=== PATIENT | male | born 1970 ===

== ENCOUNTER 2017-02-28 21:11 | Emergency (ER) | payer OTHER ==
[2017-02-28 21:49] VITALS: BP 147/80
--- NOTE | 2017-02-28 21:58 | ED THROAT/DENTAL COMPLAINT ---
History of Present Illness General Chief Complaint: Sore Throat, Dental Pain Stated Complaint: THROAT PAIN Source: patient Exam Limitations: no limitations Vital Signs & Intake/Output Vital Signs & Intake/Output Vital Signs Date Time Temp Pulse Resp B/P Pulse O2 O2 Flow FiO2 Ox Delivery Rate 02/28 2149 98.7 88 16 147/80 98 Room Air Room Air ED Intake and Output 03/01 0000 02/28 1200 Intake Total 0 Output Total Balance 0 Intake, Oral 0 Allergies Coded Allergies: No Known Drug Allergies (NKDA 02/28/17) Reconcile Medications Methylprednisolone. (Medrol) 4 MG TAB.DS.PK 1 DP PO AD INFLAMMATION 6 on day 1 then reduce by one tablet daily until gone Triage Note: PT TO TRIAGE WITH SORE THROAT AND COUGH. PT DENIES FEVERS. STATES IT STARTED 2 WEEKS AGO Triage Nurses Notes Reviewed? yes Onset: Gradual Duration: getting worse Timing: recent history Injury Environment: home Severity: severe Severity Numbers: 7 HPI: Patient is a 46-year-old male who presents emergency with a two-week history of sore throat or today his symptoms significantly worsened that made patient presents to the emergency room. Patient denies any similar sick contacts. Denies any fever or chills patient has a chronic cough he is an every day smoker. Patient hasn't taken any medications for symptoms. Denies any ear pain shortness of breath. Patient states that eating and drinking make symptoms worse however he can tolerate (BERNABE KNIGHT) Past History Travel History Traveled to [place] past 21 day No Medical History Any Pertinent Medical History? none Surgical History Surgical History: non-contributory Psychosocial History What is your primary language Kinyarwanda Tobacco Use: Current Daily Use Daily Tobacco Use Amount/Type: => 5 Cigarettes daily Family History Hx Contributory? No (BERNABE KNIGHT) Review of Systems Review of Systems Constitutional: Denies: chills, fever. EENTM: Reports: throat pain. Respiratory: Reports: see HPI, cough. Cardiovascular: Reports: no symptoms. GI: Reports: no symptoms. Genitourinary: Reports: no symptoms. Musculoskeletal: Reports: no symptoms. Skin: Reports: no symptoms. Neurological/Psychological: Reports: no symptoms. Hematologic/Endocrine: Reports: no symptoms. Immunologic/Allergic: Reports: no symptoms. All Other Systems: Reviewed and Negative (BERNABE KNIGHT) Physical Exam Physical Exam General Appearance: no apparent distress, comfortable Mouth/Throat: normal mouth inspection, pharynx normal Comments: Well-developed well-nourished person in no acute distress HEENT: Normal EENT exam, extraocular motion intact, no nystagmus. Pupils equally round and reactive to light and accommodation. Nose is atraumatic. External auditory canal and Tympanic membranes clear. Pharynx normal. No swelling or edema. Neck: Supple, no lymphadenopathy, normal range of motion without pain or tenderness Back: Nontender, no CVA tenderness. Cardiovascular: Regular rate and rhythms no murmurs rubs or gallops, normal JVP Respiratory: Chest nontender. No respiratory distress.breath sounds clear to auscultation bilaterally Abdomen: Soft, nontender nondistended, no appreciable organomegaly. Normal bowel sounds. No ascites Extremity: No edema, no calf tenderness to palpation, normal and equal pulses. Neuro: Alert oriented x3, motor sensory normal, Skin: No appreciable rash on exposed skin, skin is warm and dry. Psych: Mood and affect is normal, memory and judgment is normal. Core Measures ACS in differential dx? No Severe Sepsis Present: No Septic Shock Present: No (BERNABE KNIGHT) Progress Differential Diagnosis: carious tooth, epiglottitis, Ludwigs angina, meningitis, odontogenic abscess, nishant-tonsillar abscess, pharyngeal for. body, stomatitis/ gingivitis, strep pharyngitis, tooth fracture Plan of Care: Orders Procedure Date/time Status THROAT CULTURE W/QUICK STREP 02/29 2124 Active Patient currently looks well no apparent distress rapid strep was negative ENT exam was unremarkable patient was afebrile. (BERNABE KNIGHT) Departure Departure Disposition: HOME OR SELF CARE Condition: Stable Clinical Impression Primary Impression: Pharyngitis Secondary Impressions: Laryngitis Referrals: UNKNOWN (PCP/Family) Additional Instructions: As discussed begin the prescription on Magic mouthwash and Medrol Dosepak for your symptoms for the full course. If no better in 5 days follow-up with her primary care doctor. If symptoms worsen return to the emergency room. Prescriptions waiting at [facility]. Departure Forms: Customer Survey General Discharge Information Prescriptions: Current Visit Scripts Methylprednisolone. (Medrol) 1 DP PO AD #1 DP 6 on day 1 then reduce by one tablet daily until gone (BERNABE KNIGHT) PA/ZONING ENGINEER Co-Sign Statement Statement: ED Attending supervision documentation- [] I saw and evaluated the patient. I have also reviewed all the pertinent lab results and diagnostic results. I agree with the findings and the plan of care as documented in the PA's/ZONING ENGINEER's documentation. [x] I have reviewed the ED Record and agree with the PA's/ZONING ENGINEER's documentation. [] Additions or exceptions (if any) to the PAs/ZONING ENGINEER's note and plan are summarized below: [] (ASYA KWAN,LIZETH Alvarado)
[2017-02-28] MEDS ORDERED: MEDROL4 M2 PO (22:19)
== END 2017-02-28 22:26 ==
LOC: ERH 21:11
DX: J02.9 Acute pharyngitis, unspecified (principal); J04.0 Acute laryngitis; Z72.0 Tobacco use